=== PATIENT | female | born 1975 | race Caucasian/White ===

== ENCOUNTER 2022-05-12 05:11 | Day surgery (SDC) | payer OTHER ==
[2022-05-12] VITALS (9 sets, daily range): BP systolic 103–164; BP diastolic 44–103; PULSE 84–97; TEMP 97.4–97.7
[~2022-05-12] VITALS: Ht 157.5 cm; Wt 115.5 kg
[~2022-05-12 05:11] MED LIST: ALDACTONE50 MG PO; CARAFATE 1GM1 G PO; MULTIVITAMIN FO1 CAP; PERCOCET 325 MG1 TA2 PO; PROTONIX 40MG T40 MG PO; VIT C GUMMIES; VOLTAREN 75 DR75 MG PO; ZESTRIL 10MG10 MG PO; ZOFRAN ODT4 MG PO
[2022-05-12] MEDS ORDERED: HCTZ 25MG TAB25 MG PO (06:51)
[2022-05-12] MEDS ORDERED: PRILOSEC 20MG20 MG PO (06:52)
[2022-05-12] MEDS ORDERED: GLUCOTROL XL10 MG PO (06:53)
[2022-05-12] MEDS ORDERED: OZEMPIC1 MG/0.71 SQ (06:54)
[2022-05-12] MEDS ORDERED: OZEMPIC1 MG/0.71 (06:54)
[2022-05-12] MEDS ORDERED: ALEVE 220MG220 MG PO (06:55)
[2022-05-12] MEDS ORDERED: TYLENOL 8 HR PO (06:57)
[2022-05-12] MEDS ORDERED: ULTRAM 50MG TAB50 MG PO ×2 (06:57→06:58)
[2022-05-12] MEDS ORDERED: GLUMETZA1000 MG PO (07:01)
[2022-05-12] MEDS ORDERED: NORCO 325 MG-51 TAB PO (07:19)
--- NOTE | 2022-05-12 10:15 | NUR ---
PT TO [facility] 7 PER CART FROM PACU. RECEIVED REPORT. VS OBTAINED. CALL LIGHT WITHIN REACH. PT DENIES ANY NEEDS AT THIS TIME. PT WANTING TO REST.
--- NOTE | 2022-05-12 12:45 | NUR ---
PT TOLERATING JELLO AND SPRITE.
--- NOTE | 2022-05-12 14:20 | NUR ---
1315-PT C/O PAIN. NORCO 5/325 GIVEN AT THIS TIME. MOTRIN 600 MG GIVEN. PT KATHY ANY OTHER NEEDS AT THIS TIME. 1330-IV DC'D AT THIS TIME. 1410-DISCHARGE EDUCATION COMPLETED WITH PT AND HER . VERBALIZED UNDERSTANDING OF HOME AND FOLLOW UP CARE. PT STATES SHE KNOWS TO CALL THE SURGERY CLINIC IN [place] TO SCHEDULE HER 2 WEEK FOLLOW UP APPOINTMENT. ALL QUESTIONS ANSWERED. DISCHARGE PAPERWORK GIVEN TO PT. 1420-PT OFF UNIT PER WHEELCHAIR. PT DISCHARGE TO HOME WITH PER PERSONAL VEHICLE.
== END 2022-05-12 14:20 | disposition home or self-care (01) ==
LOC: SDCO 05:11
DX: K43.6 Other and unspecified ventral hernia with obstruction, without gangrene (principal); F17.210 Nicotine dependence, cigarettes, uncomplicated; E66.01 Morbid (severe) obesity due to excess calories; I10 Essential (primary) hypertension; K21.9 Gastro-esophageal reflux disease without esophagitis; Z79.899 Other long term (current) drug therapy; J45.909 Unspecified asthma, uncomplicated; Z86.16 Personal history of COVID-19; Z68.42 Body mass index [BMI] 45.0-49.9, adult
CPT/HCPCS: C1781; J0690; J1100; J1170; J2405; J2550; J2704; J3010; J7120

== ENCOUNTER 2024-04-04 08:06 | Day surgery (SDC) | payer BC ==
[~2024-04-04] VITALS: Ht 157.5 cm; Wt 100.2 kg
[~2024-04-04 08:06] MED LIST changes: +ALEVE 220MG220 MG PO; +GLUCOTROL XL10 MG PO; +GLUMETZA1000 MG PO; +HCTZ 25MG TAB25 MG PO; +LR 1,000 ML IV SCH; +MOUNJARO15 MG/0.5 SQ; +NORCO 325 MG-51 TAB PO; +OZEMPIC1 MG/0.71; +OZEMPIC1 MG/0.71 SQ; +Ondansetron 4 MG/2 ML VIAL IV PRN; +PRIL40 PO; +TYLENOL 8 HR PO; +ULTRAM 50MG TAB50 MG PO
[2024-04-04 08:39] VITALS: BP 134/100; PULSE 65; TEMP 97.3
[2024-04-04] MEDS ORDERED: PHENTERMINE15 MG PO (08:48)
[2024-04-04] MEDS ORDERED: XYZAL5 MG PO (08:50)
[2024-04-04] MEDS ORDERED: NORCO 325 MG-51 TAB PO (08:50)
[2024-04-04] MEDS ORDERED: ZOFRAN 4MG T4 MG/TAB PO (08:52)
[2024-04-04] MEDS ORDERED: PHENERGAN 25 TA25 MG PO (08:52)
[2024-04-04 09:06] VITALS: BP 129/81
--- NOTE | 2024-04-04 09:15 | NUR ---
The patient ambulated back to [place] [facility] independently using a steady gait and appeared to tolerate the activity well. Vital signs obtained. Consent signed. 20G IV started in right forearm with one stick, LR infusing without difficulty. Assessment completed. Home medications reconcilled. Blood sugar checked first with blood from IV start with a result of 76, it was then rechecked with a finger stick with a result of 99. brought back to be at her bedside. Warm blanket provided. Denies any further needs at this time.
[2024-04-04] MEDS ORDERED: Lidocaine PF 2% (20 MG/ML) 5 ML VIAL ONE (09:42)
[2024-04-04 10:20] VITALS: BP 124/90; PULSE 64; TEMP 97.1
[2024-04-04 10:35] VITALS: BP 156/83; PULSE 64
--- NOTE | 2024-04-04 10:50 | NUR ---
1020 RETURNS TO ROOM 4 PER CART. AWAKE, ALERT. RESP UNLABORED. AMBULATES TO RECLINER WITH STANDBY ASSIST. DENIES NAUSEA, ABD/CHEST PAIN OR DYSPHAGIA. VITAL SIGNS OBTAINED. CALL LIGHT AT SIDE 1035 TOLERATES PO SODA AND PUDDING WITHOUT NAUSEA. SWALLOWS WITHOUT DIFFICULTY 1037 DISCHARGE INSTRUCTIONS REVIEWED. PATIENT VERBALIZES UNDERSTANDING. COPY PROVIDED IN DISCHARGE FOLDER 1043 DR PATRICIO HERE TO VISIT WITH PATIENT 1045 DRESSES SELF
== END 2024-04-04 10:52 | disposition home or self-care (01) ==
LOC: SDCO 08:06
DX: D12.3 Benign neoplasm of transverse colon (principal); K21.00 Gastro-esophageal reflux disease with esophagitis, without bleeding; K22.70 Barrett's esophagus without dysplasia; K92.1 Melena; K44.9 Diaphragmatic hernia without obstruction or gangrene; K92.0 Hematemesis; R19.7 Diarrhea, unspecified; I10 Essential (primary) hypertension; K21.9 Gastro-esophageal reflux disease without esophagitis; E66.01 Morbid (severe) obesity due to excess calories; F17.210 Nicotine dependence, cigarettes, uncomplicated; Z85.41 Personal history of malignant neoplasm of cervix uteri; Z68.39 Body mass index [BMI] 39.0-39.9, adult; Z79.899 Other long term (current) drug therapy; Z80.0 Family history of malignant neoplasm of digestive organs; Z83.719 Family history of colon polyps, unspecified
CPT/HCPCS: J2704